=== PATIENT | female | born 1930 | race Caucasian/White ===

== ENCOUNTER 2016-07-24 11:17 | Day surgery (SDC) | payer MEDICARE ==
[~2016-07-24] VITALS: Ht 154.9 cm; Wt 53.1 kg
[~2016-07-24 11:17] MED LIST: ALBU2.5V4 INHALATION; ALBU90AE IH; ARFO15VI2 IH; BENZ-12 PO; BENZ100C8 PO; FLUT12AE8 IH; HYG25 PO; IPRA0.2S51 IH; LISI-567 PO; LORA10CA PO; MONT10TA23 PO; OMEP40CA36 PO; PARO20TA5 PO; PRAM0.128 PO; RES15 PO; Sodium Chloride LOK Flush 10 mL Syringe IV PRN; TRAM50TA2 PO; fentaNYL-PF 50 mCg/mL 2 mL Inj IVPUSH PRN
[2016-07-24 11:47] VITALS: BP 156/98; PULSE 68; RESP 17; O2SAT 98
[2016-07-24] MEDS ORDERED: 0.9% Sodium Chloride 1,000 ML IV ONE (12:40)
[2016-07-24 13:05] VITALS: BP 138/85; PULSE 67; RESP 16; O2SAT 98
[2016-07-24 13:15] VITALS: BP 151/81; PULSE 69; RESP 16; O2SAT 93
[2016-07-24 13:23] VITALS: BP 155/104; PULSE 66; RESP 16; O2SAT 95
[2016-07-24 13:25] VITALS: BP 158/97; PULSE 66; RESP 16; O2SAT 96
--- NOTE | 2016-07-24 17:22 | ENDO ---
[address] [address] ENDOSCOPY PROCEDURE PATIENT: KAMILLA WATT : 1930 MR#: [id number] ADMIT: 07/24/2016 JOB ID: [id number] DATE OF SERVICE: 07/24/2016 OPERATION: Colonoscopy with biopsy. PREOPERATIVE DIAGNOSIS(ES): History of stage II colon cancer, status post right hemicolectomy, constipation. POSTOPERATIVE DIAGNOSIS(ES): 1. Right hemicolectomy that was seen from prior surgery, status post biopsy. 2. Mild sigmoid diverticulosis. ANESTHESIA: Fentanyl 100 mcg, Versed 4 mg IV administered. COMPLICATION: None. BLOOD LOSS: Minimal. DESCRIPTION OF PROCEDURE: After risks and benefits explained to the patient, informed consent was obtained. After anesthesia administered, colonoscope was inserted from the rectum to the small-bowel. Mucosa carefully examined. The prep of the patient was excellent. After procedure was done, the scope withdrawn, procedure terminated. FINDINGS: Anus: No masses, hemorrhoids, ulcers, or fissures were seen. Throughout the entire examination, there was mild sigmoid diverticulosis. There was also a right hemicolectomy and anastomosis site that was seen. No masses or polyps were seen throughout the entire examination. Biopsies taken at the anastomosis site to rule out recurrent cancer. Retroflexion was normal. IMPRESSION: 1. Right hemicolectomy, status post anastomosis and biopsy. 2. Mild sigmoid diverticulosis. RECOMMENDATIONS: Await pathology results. High-fiber diet. If negative for cancer on biopsy, then repeat colonoscopy in five years.
--- NOTE | 2016-07-29 14:20 | PATH ---
SURGICAL PATHOLOGY Attending Physician:Seven Encarnacion MD CASE STATUS: Signed Out PATIENT NAME: KAMILLA WATT PID: [id number] : 1930 DATE COLLECTED:07/24/2016 00:00 SPECIMEN: Colon, Biopsy CLINICAL HISTORY: 1. Anastomosis Site FINAL DIAGNOSIS: 1.ANASTOMOSIS SITE, BIOPSY: SMALL BOWEL MUCOSA WITH NO PATHOLOGIC ABNORMALITIES. No evidence of malignancy or dysplasia. ICD10 D12.6 GROSS DESCRIPTION: The specimen is received in formalin, labeled with the patient's name, sublabeled as anastomosis site and consists of a fragment of of landin-white rubbery glistening semitranslucent tissue (0.4 x 0.2 x 0.1 cm). 07/26/16 MICRO DESCRIPTION: See diagnosis. ICD-9 CODES: CPT CODES: 1: 03231 Electronically Signed Out Lamonte Monteiro MD [facility] Pathology [facility] [address], [place] [address] Technical component performed at [facility], [address] [place] [address] Ave[address], [place], [address]
== END 2016-07-24 23:59 | disposition home or self-care (01) ==
LOC: END 11:17
PROVIDERS: ATTEND Internal Medicine Gastroenterology
DX: R19.4 Change in bowel habit (principal); K59.00 Constipation, unspecified; Z85.038 Personal history of other malignant neoplasm of large intestine; Z90.49 Acquired absence of other specified parts of digestive tract; J45.909 Unspecified asthma, uncomplicated; I10 Essential (primary) hypertension; K57.30 Diverticulosis of large intestine without perforation or abscess without bleeding
CPT/HCPCS: 45380; 88305; G0500; J7030